=== PATIENT | female | born 1975 | race Caucasian/White ===

== ENCOUNTER 2022-10-14 10:48 | Outpatient (CLI) | payer OTHER, SELFPAY | END 2022-10-14 10:49 | disposition home or self-care (01) | LOC: RT 10:53 | PROVIDERS: Visit Provider Chiropractor | DX: J45.909 Unspecified asthma, uncomplicated (principal) | CPT/HCPCS: 94060; J7613 ==

== ENCOUNTER 2023-05-20 17:09 | Emergency (ER) | payer OTHER, SELFPAY ==
[2023-05-20 17:13] VITALS: BP 100/66; PULSE 80; RESP 16; TEMP 36.8; O2SAT 100; BMI 27.3
--- NOTE | 2023-05-20 17:43 | W.ED.EXTPRO ---
HPI - Extremity Problem General: Chief complaint: Extremity Problem,Nontraumatic Stated complaint: sores on feet Time Seen by Provider: 05/20/23 17:22 History of Present Illness: Patient presents to the ER with complaints of bilateral foot pain and sores on the bottom of her feet. The sores have been there for quite a while have been opening up and weeping. They are on both feet up on the metatarsal head area. She has had these off and on multiple times for over the last 20 years. She thinks these are related to the time that she spent in [place]. She saw her family doctor couple weeks ago. And she said she was supposed to call in her some cream to put on her feet while she waits for an appointment with a consulting utility forester but she has not had either 1 done yet. Review of Systems General: Reports: 10 or more systems reviewed and unremarkable except in HPI and below PFSH ED PFSH: Medical History Bicornate uterus Surgical History History of History of surgery of uterus bicornate uterus horn removed Hx of eye surgery lazy eye age 7 Hx of knee surgery right knee three times Family History Mother Stroke Grandfather CAD (coronary artery disease) Other Cancer Diabetes Denies family history of Hypertension Social History Smoking and tobacco status: never smoked Second hand smoke exposure: No Smoking risk assessment/counseling performed?: No Alcohol intake: never Desire information about alcohol rehabilitation?: No Counseling given: No Substance/Drug Use: unknown Desire information about substance/drug rehabilitation?: No Counseling given: No Adopted: No Caregiver/support person: No Lives independently: No Household members: spouse Housing: House Marital status: Number of children: 4 Physical Exam Const: COMMON NORMALS: no acute distress, average body habitus, patient oriented x3, no limitations, healthy appearing, alert and well nourished HENMT: COMMON NORMALS: normocephalic, atraumatic, hearing grossly normal bilaterally, external ears normal, Normal external nose present and moist oral mucous membranes HEAD & SCALP: normocephalic and atraumatic NOSE: Normal external nose present EXTERNAL EAR: Yes external ears normal Eye: COMMON NORMALS: Equal, round and reactive pupils present, EOMs intact bilaterally, conjunctivae normal and no scleral icterus CONJUNCTIVA: Yes conjunctivae normal PUPIL: Yes Equal, round and reactive pupils present Neck/C-Spine: COMMON NORMALS: full ROM, no lymphadenopathy, supple, no meningeal signs, no JVD and Thyroid normal THYROID: Thyroid normal Chest: COMMONS NORMALS: normal inspection of the chest and normal palpation of entire chest wall Resp: COMMON NORMALS: normal respiratory effort, No retractions, No use of accessory muscles and clear to auscultation bilaterally AUSCULTATION: clear to auscultation bilaterally Cardio: COMMON NORMALS: no JVD, regular rate, regular rhythm, S1 normal heart sound present, S2 normal heart sound present, No gallops present (Cardio), No clicks present (Cardio), No murmurs present (Cardio) and No rub (Cardio) RATE: regular rate RHYTHM: regular rhythm HEART SOUNDS: S1 normal heart sound present and S2 normal heart sound present GI: COMMON NORMALS: Normal to inspection, nondistended, normoactive bowel sounds present, Soft to palpation, non-tender, No hepatosplenomegaly present and no masses PALPATION: Yes Soft to palpation and Yes No hepatosplenomegaly present : COMMON NORMALS: Yes no CVA tenderness BLADDER/KIDNEY EXAM: Yes no CVA tenderness Back/Pelvis: COMMON NORMALS: no CVA tenderness Extremity: NARRATIVE EXTREMITY EXAM: There are lesions on the bilateral metatarsal head region consistent with cracks and ulcerations that are weeping and oozing at present. There is no erythema no purulent discharge no odor. Neuro: COMMON NORMALS: patient oriented x3 SENSORIUM/ORIENTATION: Yes alert MENINGEAL SIGNS: Yes no meningeal signs Course Vital Signs: Vital signs: Vital Signs Temperature 98.2 F 05/20/23 17:13 Pulse Rate 80 05/20/23 17:13 Respiratory Rate 16 05/20/23 17:13 Blood Pressure 100/66 05/20/23 17:13 Pulse Oximetry 100 05/20/23 17:13 Oxygen Delivery Me thod Room Air 05/20/23 17:13 MDM - Extremity (Nontraumatic) Medical Decision Making Patient will be prescribed an antisteroid/antifungal cream and should follow back up with her primary care physician as needed and keep her appointment with the consulting utility forester that they will set up for her. Differential Diagnosis Unlikely herpes zoster, gout, cellulitis, superficial thrombophlebitis, deep venous thrombosis of upper extremity, lower extremity edema or deep vein thrombosis of lower extremity Medical Records I reviewed the patient's medical records. Lab Data I reviewed the patient's lab results. Discharge Plan Discharge Patient Disposition: Home Clinical Impression: Soft tissue lesion of foot Condition: Stable Prescriptions: New clotrimazole-betamethasone 1-0.05 % cream 1 applic topical BID PRN (Reason: sores ) Qty: 45 0RF No Action lngaufpb-wuocmtxde-SE 3.5-10,000-1 mg/mL-unit/mL-% drops,suspension 4 drp otic (ear) TID 10 Days Qty: 10 0RF Discharge Orders: Discharge ED (Routine); Ordered 05/20/23 Ordered By: Papa Aguilera Referrals: Esther Banks BOAT JOINER [Primary Care Provider] - 1 week Patient Instructions: Antifungals (On the skin), Foot Care Activity Restrictions/Additional Instructions: Please use this cream twice a day as needed for the sores on the bottom of your feet. Please follow-up with your primary care doctor to see the medication that she wanted to prescribe you and also to make for sure she is referring you to the consulting utility forester. Coding Level of Care Code ED [employer] for Priti Noble
== END 2023-05-20 18:05 | disposition home or self-care (01) ==
PROVIDERS: Emergency Provider Emergency Medicine; PCP Nurse Practitioner
DX: M79.9 Soft tissue disorder, unspecified (principal)
CPT/HCPCS: 99283

== ENCOUNTER → 2023-06-23 13:04 | Outpatient (BNVA) | payer OTHER, SELFPAY | PROVIDERS: PCP Nurse Practitioner; Visit Provider Dermatology | DX: L82.1 Other seborrheic keratosis (principal); L30.1 Dyshidrosis [pompholyx]; L50.1 Idiopathic urticaria; L81.4 Other melanin hyperpigmentation; L57.8 Other skin changes due to chronic exposure to nonionizing radiation; D48.5 Neoplasm of uncertain behavior of skin | CPT/HCPCS: 11102; 99203 ==

== ENCOUNTER 2024-05-24 13:54 | Outpatient (CLI) | payer OTHER, SELFPAY ==
--- NOTE | 2024-05-24 13:57 | CT_ITS ---
WS: [id number] CT ABDOMEN AND PELVIS NONCONTRAST HISTORY: LEFT INGUINAL LYMPHADEMA TECHNIQUE: Imaging performed through the abdomen and pelvis. Coronal and sagittal reformats are submi tted. All CT scans at [facility] use at least one of these dose optimization techniques: auto mated exposure control; mA and/or kV adjustment per patient size (includes targeted exams where dose is matched to clinical indication); or iterative reconstruction. DLP: 394.00 mGy.cm COMPARISON: None available. Lower thorax: Lung bases are clear. Visualized heart is normal. No hiatal hernia. Liver: Normal size liver. No mass or bile duct dilatation. Gallbladder: Mildly contracted gallbladder. No bile duct dilatation. Pancreas: Normal size and attenuation. Normal pancreatic duct. No pancreatitis or mass. Spleen: Normal. Adrenal glands: Normal. No mass. Right kidney: Normal size kidney with no mass or hydronephrosis. Left kidney: Normal size kidney with no mass or hydronephrosis. Aorta: Normal abdominal aorta, no aneurysm or atherosclerosis. 10 mm aortocaval lymph node small central mesenteric lymph nodes. No inguinal lymphadenopathy. GI tract: Normal stomach and small bowel. Normal appendix. Minimal constipation. Abdominal wall: Small umbilical hernia contains fat only. Pelvis: Uterus is slightly deviated to the RIGHT of midline. Slightly globular appearance to the uter ine fundus. By history patient has undergone a prior repair for developmental uterine abnormality. No free fluid or adenopathy in the pelvis. No inflammation or adenopathy is noted within the LEFT ingui nal region. Osseous structures: Increase in the lumbar lordosis. CT/CT abdomen pelvis wo con [id number] IMPRESSION: 1. No acute abdominal or pelvic abnormalities. 2. No lymphadenopathy or soft tissue lymphedema at the LEFT inguinal region or within the pelvis. 3. There are few small benign retroperitoneal lymph nodes. 4. Normal appendix.
[2024-05-24] MEDS: barium sulfate 450 mL Oral Susp PO (14:56)
== END 2024-05-24 13:55 | disposition home or self-care (01) ==
LOC: RAD 13:54
PROVIDERS: PCP Nurse Practitioner; Visit Provider Nurse Practitioner
DX: L04.1 Acute lymphadenitis of trunk (principal)
CPT/HCPCS: 74176

== ENCOUNTER → 2024-09-06 09:16 | Outpatient (BNVA) | payer OTHER, SELFPAY | PROVIDERS: PCP Nurse Practitioner; Visit Provider Nurse Practitioner | DX: M25.561 Pain in right knee (principal); M25.361 Other instability, right knee; M17.11 Unilateral primary osteoarthritis, right knee; Z98.890 Other specified postprocedural states; Z87.39 Personal history of other diseases of the musculoskeletal system and connective tissue | CPT/HCPCS: 73560; 73565; 99204 ==

== ENCOUNTER 2024-10-04 07:45 | Outpatient (CLI) | payer OTHER, SELFPAY ==
--- NOTE | 2024-10-04 07:54 | MR_ITS ---
WS: [id number] MRI RIGHT KNEE arthrogram, pre and post contrast. COMPARISON: Radiograph 09/06/2024 Multiplanar, multisequence imaging is performed with and without intra-articular contrast. HISTORY: Knee pain with swelling. History of prior meniscectomy and ACL repair. Prearthrogram: Advanced degenerative changes involving all 3 compartments of the knee. Loss of the no rmal joint spaces with marginal osteophytes. Very thin ACL graft is identified. Mild heterogeneity si gnal within the ACL graft. PCL appears appropriate. MCL is slightly removed from the joint line by os teophytes. Medial menisci are not identified as normal menisci. Very tiny residual meniscal signal is present in the anterior and posterior horns. Lateral menisci are appropriate. Small joint effusion. There is a small amount of edema in the medial patellar facet. Mild chondromala clare at the patellar eminence and along the medial patellar facet. Narrowing with advanced chondromalacia in the medial and lateral compartments. No acute fracture. Sma ll lobulated cystic mass along the popliteus tendon is most consistent with a ganglion measuring 10 x 7 mm. Post arthrogram: Good contrast distention of the joint space. ACL graft appears intact. Thinning and osseous encroachment upon the distal ACL. Chondromalacia at the patellar eminence and along the media l facet appears more advanced on the postcontrast image with contrast filling the defects. Mild chond romalacia lateral compartment and advanced chondromalacia along the medial compartment. Reidentified are very small caliber menisci in the medial compartment. No acute fracture. MR/MR knee RT wo/w con [id number] IMPRESSION: 1. Prior ACL repair. ACL graft is very thin but predominantly intact. 2. Severe degenerative changes involving the anterior and posterior horns of t he medial menisci. Very minimal normal-appearing meniscus remains. 3. Tricompartment osteoarthritis. Most significant in the medial compartment. Complete loss of cartilage in the medial and lateral compartments. Marginal ost eophytes. 4. Lobulated cystic mass along the popliteus tendon is probably a ganglion ashly suring 10 x 7 mm. 5. Marrow edema in the medial patellar facet and chondromalacia. 6. ACL appears intact on the post arthrogram sequences. 7. On the post arthrogram sequences the chondromalacia at the patellar eminenc e and along the medial patellar facet is more advanced than expected on the pre contrast imaging. 8. There are a few small fragments in the intercondylar notch which may be rel ated to the prior surgery. No large intra-articular bodies identified.
--- NOTE | 2024-10-04 08:00 | IR_ITS ---
WS: [id number] RIGHT KNEE ARTHROGRAM (FLUOROSCOPY) RIGHT knee arthrogram was performed in fluoroscopy prior to MRI evaluation. HISTORY: right knee pain and instability COMPARISON: None. FLUOROSCOPY TIME: 0min [id number] # of spot films: 1 Procedure, risks and complications were explained to the patient. Complications include but not limit ed to bleeding, infection and contrast reaction. Current medications are reviewed. Skin is cleansed with ChloraPrep. Skin is anesthetized with 1% buffered lidocaine. 22-gauge needle is inserted into the patellofemoral joint. Approximately 40 cc of gadolinium mixture injected without c omplication. Patient will proceed to MRI evaluation immediately. No complications were encountered. Patient is instructed to watch for post procedure infection or ble eding. Patient is also instructed to contact the radiology department with any concerns. IR/[place] [id number] IMPRESSION: Uncomplicated RIGHT knee joint injection prior to MR arthrogram.
[2024-10-04] MEDS: gadobenate dimeglumine 20 mL vial IV (09:17)
[2024-10-04] MEDS: iohexol 240 mg/mL 50 mL Btl 25 ML INTRA-ARTI (09:19)
== END 2024-10-04 07:46 | disposition home or self-care (01) ==
PROVIDERS: PCP Nurse Practitioner; Visit Provider Nurse Practitioner
DX: M17.11 Unilateral primary osteoarthritis, right knee (principal); Z98.890 Other specified postprocedural states; M23.311 Other meniscus derangements, anterior horn of medial meniscus, right knee; M23.321 Other meniscus derangements, posterior horn of medial meniscus, right knee; R93.89 Abnormal findings on diagnostic imaging of other specified body structures; M25.761 Osteophyte, right knee; M22.41 Chondromalacia patellae, right knee
CPT/HCPCS: 27369; 73723; 77002

== ENCOUNTER → 2024-10-24 14:30 | Outpatient (BNVA) | payer OTHER, SELFPAY | PROVIDERS: PCP Nurse Practitioner; Visit Provider Nurse Practitioner | DX: M25.361 Other instability, right knee (principal); M17.11 Unilateral primary osteoarthritis, right knee; Z98.890 Other specified postprocedural states; Z87.39 Personal history of other diseases of the musculoskeletal system and connective tissue; Z46.89 Encounter for fitting and adjustment of other specified devices | CPT/HCPCS: 99214 ==

== ENCOUNTER 2024-12-11 13:08 | Outpatient (RCR) | payer OTHER, SELFPAY | END 2024-12-31 23:59 | disposition home or self-care (01) | LOC: SPT 13:08 | PROVIDERS: Visit Provider Nurse Practitioner | DX: M25.361 Other instability, right knee (principal); M17.11 Unilateral primary osteoarthritis, right knee | CPT/HCPCS: 97110; 97161 ==

== ENCOUNTER 2025-01-01 05:52 | Outpatient (RCR) | payer OTHER, SELFPAY | END 2025-01-30 23:59 | disposition home or self-care (01) | LOC: SPT 05:52 | PROVIDERS: Visit Provider Nurse Practitioner | DX: M23.52 Chronic instability of knee, left knee (principal) | CPT/HCPCS: 97110 ==

== ENCOUNTER 2025-01-14 13:49 | Outpatient (RCR) | payer OTHER, SELFPAY | END 2025-01-30 23:59 | disposition home or self-care (01) | LOC: SPT 13:49 | PROVIDERS: Visit Provider Nurse Practitioner | DX: M25.511 Pain in right shoulder (principal) | CPT/HCPCS: 97110; 97161 ==

== ENCOUNTER 2025-01-31 05:00 | Outpatient (RCR) | payer OTHER, SELFPAY | END 2025-03-02 23:59 | disposition home or self-care (01) | LOC: SPT 05:00 | PROVIDERS: Visit Provider Nurse Practitioner | DX: M25.519 Pain in unspecified shoulder (principal) | CPT/HCPCS: 97110 ==

== ENCOUNTER 2025-01-31 05:00 | Outpatient (RCR) | payer OTHER, SELFPAY | END 2025-03-02 23:59 | disposition home or self-care (01) | LOC: SPT 05:00 | PROVIDERS: Visit Provider Nurse Practitioner | DX: M25.361 Other instability, right knee (principal); M17.11 Unilateral primary osteoarthritis, right knee | CPT/HCPCS: 97110; 97112; 97164 ==

== ENCOUNTER 2025-03-03 06:30 | Outpatient (RCR) | payer OTHER, SELFPAY | END 2025-04-01 23:59 | disposition home or self-care (01) | LOC: SPT 06:30 | PROVIDERS: Visit Provider Nurse Practitioner | DX: M25.519 Pain in unspecified shoulder (principal) | CPT/HCPCS: 97110 ==